=== PATIENT | male | born 1975 | race Caucasian/White ===

== ENCOUNTER 2025-07-17 13:02 | Inpatient (IN) | payer SELFPAY ==
[2025-07-17] VITALS (9 sets, daily range): BP systolic 95–129; BP diastolic 68–81; PULSE 78–88; RESP 18–28; TEMP 36.3–37; O2SAT 87–100; BMI 21.5; BMI 21.7
--- NOTE | 2025-07-17 13:07 | RAD_ITS ---
PROCEDURE: CHEST PA AND LATERAL 07/17/2025 REASON FOR EXAM: COUGHING UP SPUTUM TECHNIQUE: Procedure Code: RADCXR Modality: DX Procedure: CHEST PA AND LATERAL COMPARISON: None. FINDINGS: LUNGS AND PLEURA: Consolidation occupying the right middle lobe and to a lesser degree inferior right lower lobe. No pleural effusion or pneumothorax. HEART AND MEDIASTINUM: The heart size and mediastinal contours are normal. BONES: No acute osseous abnormality. RAD/Chest PA and Lateral IMPRESSION: Right lung consolidations, consistent with pneumonia. Posttreatment follow-up imaging is recommended until resolved. Reading Location: [id number]
[2025-07-17 13:31] LABS: Hematocrit 42.3 % (40-54); Hemoglobin 14.4 g/dL (13.0-16.5); Immature Granulocytes Count 0.350 X10^3/uL (0.0-0.0); Mean Corp Hgb Conc 34.0 g/dL (32-36); Mean Corpuscular Volume 82.5 fL (80-94); Mean Platelet Vol. 9.0 fl (6.2-12.0); NRBC Flagged by Analyzer 0 % (0-5); POSITIVE DIFFERENTIAL YES; POSITIVE MORPHOLOGY YES; Platelet Count 417 K/mm3 (150-450); RBC Distribution Width CV 12.1 % (11.6-14.6); RBC Distribution Width SD 36.6 fl (35.1-43.9); Red Blood Count 5.13 M/mm3 (4.6-6.2); White Blood Count 21.9 K/mm3 (4.4-11.0)
[2025-07-17 13:41] LABS: Differential Indicated SCAN CRITERIA MET
[2025-07-17 14:21] LABS: Anion Gap 12 (5-15); BUN 32 mg/dL (4-19); BUN/Creat Ratio 34.4 RATIO (10-20); Calcium,Total 9.9 mg/dL (7.6-11.0); Carbon Dioxide 28.1 mmol/L (21.0-32.0); Chloride 83 mmol/L (98-108); Estimated Creatinine Clearance 85.70 ml/min (50-250); Glucose 743 mg/dL (70-99); Potassium 5.7 mmol/L (3.3-5.1)
--- NOTE | 2025-07-17 14:23 | EKG12_ITS ---
Test Reason : Blood Pressure : */* mmHG Vent. Rate : 77 BPM Atrial Rate : 77 BPM P-R Int : 134 ms QRS Dur : 104 ms QT Int : 386 ms P-R-T Axes : 51 31 59 degrees QTcB Int : 436 ms Normal sinus rhythm Normal ECG Confirmed by Bautista Lake ([id number]), script editor TAYLOR ANDERSON ([id number]) on 07/18/2025 10:36:01 AM Referred By: Confirmed By: Bautista Lake
--- NOTE | 2025-07-17 14:42 | ED.VIS.DYS ---
HPI History of Present Illness Chief Complaint: Cold Sx Narrative Narrative: Chief complaint and HPI: 49-year-old male with no significant past medical history other than intermittent heroin abuse (does not inject) presents for evaluation of right sided chest pain, cough, headache for the past 3 days. Patient denies any fever, chills, shortness of breath, abdominal pain, nausea, vomiting, diarrhea, constipation, dysuria. Denies any sick contacts. Patient describes his pain as sharp. Worse when he takes a deep breath then. Review of systems: See HPI Medications: As listed on the chart Allergies: As listed on the chart PFSH: Per chart Vital signs: As listed on the chart. Reviewed. Physical exam: Gen: A&O x3, NAD Head: Normocephalic, atraumatic Eyes: No sclera icterus, conjunctiva clear, PERRL, EOMI ENT: TMs clear BL, dry mucous membranes, posterior oropharynx unremarkable, uvula midline, tonsils not enlarged Neck: Trachea midline, Full ROM, No meningismus CV: RRR, no murmurs, +1 bilateral peripheral edema Resp: Lungs CTA BL, no w/r/c GI: Cachectic, abd soft, non-distended, non-tender, no r/r/g Musc: Full ROM, no deformity Skin: Warm, dry, no rash Psych: Cooperative, appropriate mood and affect [facility] Medical History Encounter for examination required by Department of Transportation (DOT) Home Medications ?Medication ?Instructions ?Recorded ?Last Taken ?Type NK 05/23/23 Unknown History Allergy/AdvReac Type Severity Reaction Status Date / Time No Known Allergies Allergy Verified 07/17/25 13:06 Social History (Updated 05/23/23 @ 13:20 by Magalis Aguilar) Smoking Status: Current every day smoker tobacco type: cigarettes EXAM Physical Exam Const Vital Signs: 07/17/25 13:04 07/17/25 13:39 07/17/25 13:39 Temperature 97.3 F L Temperature Source Temporal Pulse Rate 80 Respiratory Rate 18 20 H Respiratory Effort Respiratory Pattern Blood Pressure 129/81 H Blood Pressure Mean 97 Pulse Ox 95 100 Oxygen Delivery Method Room Air Room Air Room Air 07/17/25 13:39 07/17/25 15:04 Temperature Temperature Source Pulse Rate 84 Respiratory Rate 19 H Respiratory Effort Short of Breath Respiratory Pattern Tachypnea Blood Pressure 105/78 Blood Pressure Mean 87 Pulse Ox 93 Oxygen Delivery Method Room Air MDM MDM MDM Narrative Medical decision making narrative: 49-year-old male with no significant past medical history other than intermittent heroin abuse (does not inject) presents for evaluation of right sided chest pain, cough, headache for the past 3 days. Patient describes his pain as sharp. Worse when he takes a deep breath. Differential diagnosis includes but is not limited to influenza, viral illness, pneumonia, pleurisy, PE, electrolyte abnormality, dehydration. Laboratory workup ordered including chest x-ray. NS bolus, morphine, Zofran ordered. CBC with leukocytosis of 21.9. No anemia. BMP shows dehydration with a sodium of 123, potassium of 5.7. BUN of 32. No DOTTIE. Patient is hyperglycemic at 743. Patient has no history of diabetes. Concern is for possible new onset diabetes/DKA. DKA workup ordered. Patient receiving fluids. IV insulin ordered. VBG without acidosis. UA negative for UTI but positive for glucose. Negative for ketones. COVID, flu, RSV negative. D-dimer elevated at 1.47. Cannot rule out PE. CTA chest ordered. Hemoglobin A1c is 14.9. Patient is a diabetic but not in DKA.. Hepatic panel relatively unremarkable. BNP unremarkable. Beta hydroxy butyrate elevated at 0.7. Urine drug screen positive for fentanyl. Repeat blood sugar in the 500s. 5 units IV insulin ordered and NS bolus. Troponin unremarkable. Chest x-ray was personally viewed interpreted by [place], ED physician. Patient has right-sided pneumonia. Radiology in agreement. Rocephin and azithromycin ordered. CTA chest negative for PE. Patient has extensive airspace disease in the right middle greater than lower lobes including lobar consolidation. Findings suggest relatively large volume aspiration and associated pneumonia/pneumonitis. Note tiny foci of aeration in the consolidated right middle lobe, may reflect necrotizing component/early pulmonary abscess formation. Recommend follow-up CT in 2 to 3 months. Mediastinal lymphadenopathy. Patient will warrant admission. Patient was updated on his results of the plan. He confirmed understanding. Patient was discussed with the hospitalist service who accepted admission. EKG: Interpreted by me/EM physician: EKG shows normal sinus rhythm without any acute ischemic changes. Heart rate 77. Impression: 1. Right-sided pneumonia 2. Hyperglycemia with new diagnosis of diabetes 3. Hyponatremia 4. Hyperkalemia 5. Dehydration Lab Data Labs: Laboratory Results - last 24 hr 07/17/25 07/17/25 07/17/25 13:22 14:45 14:56 WBC 21.9 H RBC 5.13 Hgb 14.4 Hct 42.3 MCV 82.5 MCH 28.1 MCHC 34.0 RDW Std Deviation 36.6 RDW Coeff of Shailesh 12.1 Plt Count 417 MPV 9.0 Immature Gran % (Auto) 1.600 H Neut % (Auto) 77.9 H Lymph % (Auto) 6.7 L [place] % (Auto) 13.7 H Eos % (Auto) 0.1 Baso % (Auto) 0.0 Absolute Neuts (auto) 17.0 H Absolute Lymphs (auto) 1.46 Nucleated RBC % 0 Differential Comment COMMENT D-Dimer Quant (PE/DVT) 1.47 H* Sodium 123 L Potassium 5.7 H Chloride 83 L Carbon Dioxide 28.1 Anion Gap 12 BUN 32 H Creatinine 0.94 Estim Creat Clear Calc 85.70 Est GFR (MDRD) Non-Af 100 BUN/Creatinine Ratio 34.4 H Glucose 743 H* Hemoglobin A1c 14.9 H Lactic Acid 2.1 H* Calcium 9.9 Total Bilirubin 0.67 Direct Bilirubin 0.46 H AST 28 ALT 26 Alkaline Phosphatase 198 H Troponin T High Sens < 6 NT pro BNP II 148 Total Protein 7.3 Albumin 3.0 L Globulin 4.3 H b-Hydroxybutyric mmol/L 0.7 H Urine Color Straw Urine Clarity Clear Urine pH 6.0 Ur Specific [place] 1.010 Urine Protein Negative Urine Glucose (UA) 1000 H Urine Ketones 5 H Urine Occult Blood Negative Urine Nitrite Negative Urine Bilirubin Negative Urine Urobilinogen Normal Ur Leukocyte Esterase Negative Urine RBC 0 SEEN Urine WBC 0 SEEN Ur Squamous Epith Cells 0-5 SEEN Urine Bacteria 0 SEEN Urine Mucus 0 SEEN Urine Opiates Screen NEGATIVE U Buprenorphine Qual NEGATIVE Ur Oxycodone Screen NEGATIVE Urine Methadone Screen NEGATIVE Urine Fentanyl Screen PRESUMPTIVE POSITIVE Ur Barbiturates Screen NEGATIVE Ur Phencyclidine Scrn NEGATIVE Ur Amphetamines Screen NEGATIVE U Benzodiazepines Scrn NEGATIVE Urine Cocaine Screen NEGATIVE U Cannabinoids Screen NEGATIVE POC Glucose > 500 H* 07/17/25 15:57 WBC RBC Hgb Hct MCV MCH MCHC RDW Std Deviation RDW Coeff of Shailesh Plt Count MPV Immature Gran % (Auto) Neut % (Auto) Lymph % (Auto) [place] % (Auto) Eos % (Auto) Baso % (Auto) Absolute Neuts (auto) Absolute Lymphs (auto) Nucleated RBC % Differential Comment D-Dimer Quant (PE/DVT) Sodium Potassium Chloride Carbon Dioxide Anion Gap BUN Creatinine Estim Creat Clear Calc Est GFR (MDRD) Non-Af BUN/Creatinine Ratio Glucose Hemoglobin A1c Lactic Acid Calcium Total Bilirubin Direct Bilirubin AST ALT Alkaline Phosphatase Troponin T High Sens NT pro BNP II Total Protein Albumin Globulin b-Hydroxybutyric mmol/L Urine Color Urine Clarity Urine pH Ur Specific [place] Urine Protein Urine Glucose (UA) Urine Ketones Urine Occult Blood Urine Nitrite Urine Bilirubin Urine Urobilinogen Ur Leukocyte Esterase Urine RBC Urine WBC Ur Squamous Epith Cells Urine Bacteria Urine Mucus Urine Opiates Screen U Buprenorphine Qual Ur Oxycodone Screen Urine Methadone Screen Urine Fentanyl Screen Ur Barbiturates Screen Ur Phencyclidine Scrn Ur Amphetamines Screen U Benzodiazepines Scrn Urine Cocaine Screen U Cannabinoids Screen POC Glucose > 500 H* ABG Data ABG results: ABG 07/17/25 15:11 Specimen Type KAREL Sample Site Not entered VBG pH 7.44 H VBG pO2 34 VBG HCO3 27 H VBG Total CO2 28 VBG O2 Sat (Calc) 68 VBG Base Excess 3 POC Mix VBG pCO2 Pt Tmp 39.4 L O2 Delivery Device Not entered Radiography Diagnostic Testing: Clinical Impression(s) from Imaging Studies Chest X-Ray 07/17/25 13:07 IMPRESSION: Right lung consolidations, consistent with pneumonia. Posttreatment follow-up imaging is recommended until resolved. Reading Location: [facility] Chest CTA 07/17/25 15:24 IMPRESSION: 1. No pulmonary embolism identified. 2. Extensive airspace disease in the RIGHT middle greater than lower lobes including lobar consolidation/collapse of the RIGHT middle lobe, associated with complete opacification of the associated bronchial tree with debris. Findings suggest relatively large volume aspiration and associated pneumonia/pneumonitis. Note tiny foci of aeration in the consolidated RIGHT middle lobe may reflect necrotizing component/early pulmonary abscess formation. Recommend follow-up CT chest with IV contrast in 2-3 months to document resolution and no underlying central obstructing mass as an alternative etiology for these findings. 3. Mediastinal lymphadenopathy, nonspecific and potentially reactive to the above in the absence of known malignancy. Correlate with medical history and recommend attention on above follow-up. 4. Additional description as above. Reading Location: [id number] Discharge Plan Triage Chief Complaint: Cold Sx ED Provider: Rob Laura Dx/Rx/DC Orders Prescriptions: No Action NK Primary Care Provider: Care Physician,No Primary Referrals: Care Physician,No Primary [Primary Care Provider, Medical] Print Language: Bahamian
[2025-07-17] MEDS: 0.9% Normal Saline (1000mL) 1,000 ML 1000 ML IV ×2 (14:43→16:50)
[2025-07-17] MEDS: Insulin Lispro 10 UNIT in Syringe 0 ML 6 UNIT IV (14:56)
[2025-07-17 15:03] LABS: Color, Urine Straw (Yellow); Glucose, Dipstick 1000 mg/dl (Normal); Ketone-Dipstick 5 mg/dl (Negative); Leukocyte Esterase-Dipstick Negative /ul (Negative); Mucous, Urine 0 SEEN /hpf (<or=2+); Nitrite-Dipstick Negative (Negative); Occult Blood-Urine Negative /ul (Negative); Protein-Dipstick Negative (Negative); Red Blood Cells-Urine 0 SEEN /hpf (0-5); Specific Gravity, Urine 1.010 (1.002-1.030); Urine Bilirubin Dipstick Negative (Negative)
[2025-07-17 15:15] LABS: D-Dimer Quantitative (DVT/PE) 1.47 FEU/ug/m (0.27-0.49)
[2025-07-17 15:15] LABS: SITE Not entered; VBG BASE EXCESS 3 mmol/L (-1.0-3.5); VBG PO2 34 mmHg (25-40); VBG SO2 68 % (50-70); VBG TCO2 28 mmol/L (23-33)
[2025-07-17 15:18] LABS: Squamous Epithelial Cells - UA 0-5 SEEN /hpf (0-5)
--- NOTE | 2025-07-17 15:24 | CT_ITS ---
PROCEDURE: CTA CHEST W/WO CONTRAST 07/17/2025 REASON FOR EXAM: PE TECHNIQUE: Procedure Code: [id number] Modality: CT Procedure: CTA CHEST W/WO CONTRAST CTA chest was performed with IV contrast. Multiplanar reformats and MIP reconstructions were generated. CONTRAST: Isovue 370 VOLUME: 100 mL One or more dose reduction techniques were used (e.g., Automated exposure control, adjustment of the mA and/or kV according to patient size, use of iterative reconstruction technique). RADIATION DOSE SUMMARY: CTDlvol: 5.99+ 4.20 mGy DLP: 150.78 mGycm COMPARISON: None. FINDINGS: Heart/pericardium: Unremarkable. Aorta: Unremarkable. Pulmonary arteries: Normal in caliber. No pulmonary embolism is identified. Lymph nodes: Ill-defined subcarinal node, 14 mm short axis. Suspected precarinal node, is partially obscured by streak artifact, 12 mm short axis. Additional more cranial paratracheal node roughly 17 mm short axis also partially obscured by artifact. Considerable perihilar airspace disease in the RIGHT, unable to exclude hilar lymphadenopathy although none is definitely measurable. Lungs/pleura: Considerable multifocal airspace disease on the RIGHT including lobar consolidation/collapse of the RIGHT middle lobe allowing for a few tiny foci of aeration versus cavitation.. Fairly extensive airspace disease in the RIGHT lower lobe is vaguely nodular with trace surrounding ground-glass. These findings are associated with airway related findings as below. Trace RIGHT pleural effusion. Airways: Virtually complete opacification of the bronchus intermedius, RIGHT middle lobe bronchus, and RIGHT lower lobe bronchus, as well as peripheral branches with fluid/debris.. Chest wall: Unremarkable. Upper abdomen: Small LEFT renal cyst. Musculoskeletal: Minimal degenerative findings.. CT/CTA Chest W/WO Contrast IMPRESSION: 1. No pulmonary embolism identified. 2. Extensive airspace disease in the RIGHT middle greater than lower lobes incl uding lobar consolidation/collapse of the RIGHT middle lobe, associated with complete opacification of the associated bronchial tree with debris. Findings suggest relatively large volume aspiration and associated pneumonia/pneumonitis. Note tiny foci o f aeration in the consolidated RIGHT middle lobe may reflect necrotizing component/early pulmonary abscess formation. Recommend follow-up CT chest with IV contrast in 2-3 months to document resolution and no underlying central obstructing mass as an alterna tive etiology for these findings. 3. Mediastinal lymphadenopathy, nonspecific and potentially reactive to the abo ve in the absence of known malignancy. Correlate with medical history and recommend attention on above follow-up. 4. Additional description as above. Reading Location: [id number]
[2025-07-17 15:39] LABS: AST(SGOT) 28 U/L (<=37); Alanine Aminotransfer ALT/SGPT 26 U/L (<=46); Albumin, Serum 3.0 g/dL (3.5-5.0); Alkaline Phosphatase 198 U/L (40-129); BETA-HYDROXYBUTYRATE 0.7 mmol/L (0.0-0.3); Bilirubin, Direct 0.46 mg/dL (0.00-0.30); Globulin 4.3 g/dL (2.2-4.2); Pro- Brain NATRIURETIC PEPTIDE 148 pg/mL (<=450)
[2025-07-17 15:40] LABS: Barbiturate Urine NEGATIVE (< 200 ng/mL); Benzodiazepine Urine NEGATIVE (< 200 ng/mL); PCP Urine NEGATIVE (< 25 ng/mL); THC Urine NEGATIVE (< 50 ng/mL)
[2025-07-17 16:03] LABS: Troponin T High Sensitivity < 6 ng/L (<=22)
[2025-07-17] MEDS: Insulin Lispro 5 UNIT in Syringe 0 ML 3 UNIT IV (17:05)
[2025-07-17] MEDS: Ceftriaxone 2 GM in 0.9% Normal Saline (50mL MB+) 50 ML IV (17:07)
[2025-07-17] MEDS: Ketorolac 30 MG/ML Syringe IV (17:20)
--- NOTE | 2025-07-17 17:28 | HP.PCM.HOS_ITS ---
HPI - General General Date of Admission: 07/17/25 Date of Service: 07/17/25 Chief Complaint: Right sided chest pain HPI Narrative JAMIE VILLANUEVA, is a 49-year-old male history of daily heroin use presented [facility] ED 07/17/2025 with several days of right-sided chest pain and cough for the past 3 days. In the ED temp 97.3, heart rate of 80, respiratory rate 18, blood pressure 129/81, pulse ox 95% on room air. White count was found to be 21.9, hemoglobin 14.4, sodium 123 and potassium 5.7 however glucose noted to be 743, BUN 32 and creatinine 0.94. D-dimer 1.47 and lactic acid 2.1, hemoglobin A1c obtained was 14.9. Beta hydroxybutyrate 0.7 and UA with only 5 ketones, no evidence of infection. Fentanyl positive and UDS. VBG with pH of 7.44, bicarb 27, pCO2 39.4. Chest x-ray with right lung consolidation consistent with pneumonia and given D-dimer chest CTA obtained which showed extensive airspace disease in right middle greater than lower lobe including lobar consolidation/collapse of right middle lobe with complete opacification of associated bronchial tree with debris concerning for aspiration and associated pneumonia/pneumonitis. Tiny foci of aeration in the consolidated right middle lobe which could show early pulmonary abscess formation but is recommended follow-up CT of the chest with contrast in 2 to 3 months to document resolution. Mediastinal lymphadenopathy appreciated. Patient given antibiotics and IV fluids as well as insulin hospitalist contacted for admission. Patient evaluated bedside and reported history as above with 3 to 4 days of right sided chest pain worse with inspiration and cough, did not note shortness of breath particularly as he mostly was concerned about the pain. Denies any fevers at home. Denies any events where he passed out and may have aspirated or was sleeping so deeply he would not have noticed an aspiration event. Does note heroin and denies IV use, uses every day but reports he uses about half a gram, is not interested in any kind of Subutex treatment. [facility] Medical History (Updated 07/17/25 @ 17:[address] Jana Randle MD) Encounter for examination required by Department of Transportation (DOT) Home Medications ?Medication ?Instructions ?Recorded ?Last Taken ?Type NK 05/23/23 Unknown History Allergy/AdvReac Type Severity Reaction Status Date / Time No Known Allergies Allergy Verified 07/17/25 13:06 Social History (Updated 05/23/23 @ 13:20 by Magalis Aguilar) Smoking Status: Current every day smoker tobacco type: cigarettes ROS ROS Narrative General: Denies fever/chills HENT: Denies headache, denies stuffy nose, denies sore throat EYES: Denies changes in vision Resp: Specifically reports cough, maybe some shortness of breath Cardiac: Pleuritic right-sided chest pain GI: Denies abdominal pain, denies changes in bowel, denies nausea/vomiting : Denies changes in urination Extremity: Some swelling intermittently in legs which is not new, usually left greater than right MSK: Denies weakness Neuro: Denies any numbness/tingling Heme: Denies any bleeding or bruising Skin: some redness on nose Psychiatric: No complaints voiced Patient's Goals Of Care . What would you like to achieve or improve as a result of your hospital stay?: To improve right sided chest pain Vital Signs Vital Signs Vital Signs: 07/17/25 13:04 07/17/25 13:39 07/17/25 13:39 Temperature 97.3 F L Temperature Source Temporal Pulse Rate 80 Respiratory Rate 18 20 H Respiratory Effort Respiratory Pattern Blood Pressure 129/81 H Blood Pressure Mean 97 Pulse Ox 95 100 Oxygen Delivery Method Room Air Room Air Room Air 07/17/25 13:39 07/17/25 15:04 07/17/25 17:26 Temperature 97.9 F Temperature Source Pulse Rate 84 83 Respiratory Rate 19 H 19 H Respiratory Effort Short of Breath Respiratory Pattern Tachypnea Blood Pressure 105/78 113/76 Blood Pressure Mean 87 88 Pulse Ox 93 94 Oxygen Delivery Method Room Air Weight Weight: 62.369 kg Body Mass Index (BMI) 21.5 Physical Exam Narrative General: Alert, oriented, no apparent distress HEENT: Atraumatic, normocephalic Eyes: Anicteric, normal conjunctiva, extraocular movements grossly intact Neck: Supple Respiratory: Clear to auscultation bilaterally, normal respiratory effort Cardiovascular: Regular rate and rhythm GI: Soft, nontender, nondistended Extremities: No edema Musculoskeletal: Moving all extremities Neuro: No overt focal neurological deficits Skin: No rashes appreciated Psych: Cooperative Results Lab / Micro Data 07/17/25 13:22 07/17/25 13:22 Labs: Laboratory Results - last 24 hr 07/17/25 13:22: WBC 21.9 H, RBC 5.13, Hgb 14.4, Hct 42.3, MCV 82.5, MCH 28.1, MCHC 34.0, RDW Std Deviation 36.6, RDW Coeff of Shailesh 12.1, Plt Count 417, MPV 9.0, Immature Gran % (Auto) 1.600 H, Neut % (Auto) 77.9 H, Lymph % (Auto) 6.7 L, [place] % (Auto) 13.7 H, Eos % (Auto) 0.1, Baso % (Auto) 0.0, Absolute Neuts (auto) 17.0 H, Absolute Lymphs (auto) 1.46, Nucleated RBC % 0, Differential Comment COMMENT, Sodium 123 L, Potassium 5.7 H, Chloride 83 L, Carbon Dioxide 28.1, Anion Gap 12, BUN 32 H, Creatinine 0.94, Estim Creat Clear Calc 85.70, Est GFR (MDRD) Non-Af 100, BUN/Creatinine Ratio 34.4 H, Glucose 743 H*, Calcium 9.9 07/17/25 14:45: D-Dimer Quant (PE/DVT) 1.47 H*, Hemoglobin A1c 14.9 H, Lactic Acid 2.1 H*, Total Bilirubin 0.67, Direct Bilirubin 0.46 H, AST 28, ALT 26, A lkaline Phosphatase 198 H, Troponin T High Sens < 6, NT pro BNP II 148, Total Protein 7.3, Albumin 3.0 L, Globulin 4.3 H, b-Hydroxybutyric mmol/L 0.7 H, Urine Color Straw, Urine Clarity Clear, Urine pH 6.0, Ur Specific [place] 1.010, Urine Protein Negative, Urine Glucose (UA) 1000 H, Urine Ketones 5 H, Urine Occult Blood Negative, Urine Nitrite Negative, Urine Bilirubin Negative, Urine Urobilinogen Normal, Ur Leukocyte Esterase Negative, Urine RBC 0 SEEN, Urine WBC 0 SEEN, Ur Squamous Epith Cells 0-5 SEEN, Urine Bacteria 0 SEEN, Urine Mucus 0 SEEN, Urine Opiates Screen NEGATIVE, U Buprenorphine Qual NEGATIVE, Ur Oxycodone Screen NEGATIVE, Urine Methadone Screen NEGATIVE, Urine Fentanyl Screen PRESUMPTIVE POSITIVE, Ur Barbiturates Screen NEGATIVE, Ur Phencyclidine Scrn NEGATIVE, Ur Amphetamines Screen NEGATIVE, U Benzodiazepines Scrn NEGATIVE, Urine Cocaine Screen NEGATIVE, U Cannabinoids Screen NEGATIVE 07/17/25 14:56: POC Glucose > 500 H* 07/17/25 15:57: POC Glucose > 500 H* Micro: Microbiology 07/17/25 13:10 Mucosa - Nose SARS-CoV-2, Influenza & RSV (PCR) - Final ABG Data ABG results: ABG 07/17/25 15:11 Specimen Type KAREL Sample Site Not entered VBG pH 7.44 H VBG pO2 34 VBG HCO3 27 H VBG Total CO2 28 VBG O2 Sat (Calc) 68 VBG Base Excess 3 POC Mix VBG pCO2 Pt Tmp 39.4 L O2 Delivery Device Not entered Imaging Radiology Impression Chest X-Ray 07/17/25 13:07 IMPRESSION: Right lung consolidations, consistent with pneumonia. Posttreatment follow-up imaging is recommended until resolved. Reading Location: [id number] Chest CTA 07/17/25 15:24 IMPRESSION: 1. No pulmonary embolism identified. 2. Extensive airspace disease in the RIGHT middle greater than lower lobes including lobar consolidation/collapse of the RIGHT middle lobe, associated with complete opacification of the associated bronchial tree with debris. Findings suggest relatively large volume aspiration and associated pneumonia/pneumonitis. Note tiny foci of aeration in the consolidated RIGHT middle lobe may reflect necrotizing component/early pulmonary abscess formation. Recommend follow-up CT chest with IV contrast in 2-3 months to document resolution and no underlying central obstructing mass as an alternative etiology for these findings. 3. Mediastinal lymphadenopathy, nonspecific and potentially reactive to the above in the absence of known malignancy. Correlate with medical history and recommend attention on above follow-up. 4. Additional description as above. Reading Location: [id number] Assessment & Plan Assessment/Plan (1) Pneumonia: (2) Opioid use disorder: (3) Diabetes mellitus: PLAN: Plan # Right-sided pneumonia -Imaging: chest CTA obtained which showed extensive airspace disease in right middle greater than lower lobe including lobar consolidation/collapse of right middle lobe with complete opacification of associated bronchial tree with debris concerning for aspiration and associated pneumonia/pneumonitis. Tiny foci of aeration in the consolidated right middle lobe which could show early pulmonary abscess formation but is recommended follow-up CT of the chest with contrast in 2 to 3 months to document resolution. Mediastinal lymphadenopathy appreciated -Unclear if patient may have had an episode where he passed out from drug use and aspirated, patient not very forthcoming -DuoNebs and as needed albuterol -Sputum culture, COVID ordered, respiratory panel ordered -Urine antigens -Mucinex, I/S -Given concern for aspiration will start Zosyn and given this is technically community-acquired we will also treat with azithromycin -Feel is reasonable to consult infectious disease -Presently saturating well on room air, may ultimately consider pulm involvement as well -Will check HIV # New onset diabetes -A1c 14.9 -Not presently in DKA, suspect that this is probably been going on longer than patient realizes, reports he has not been to a doctor in a long time -Every 4 hour glucose checks and sliding scale insulin -Will start glargine twice daily and uptitrate -Every 4h BMPs for now to monitor electrolytes # Heroin use -Patient not interested in any kind of Subutex or detox, discussed his use with him, advised if he changes his mind to let us know #Hyperkalemia - Likely due to significant shifts due to hyperglycemia, IV fluids and trend BMP #DVT ppx: Lovenox subcu Jana Randle MD Time spent in the patient's overall evaluation, decision-making process, review of diagnostic data, adjustment of management, discussion with other providers, nursing and ancillary staff involved in patient's care documentation, 76 Minutes Charges/Coding Visit Charges Inpatient E&M: 80925 Init Hosp L3
[2025-07-17] MEDS: Azithromycin 500 MG in 0.9% Normal Saline (250mL Bag) 250 ML 255 MG IV (17:53)
[2025-07-17 18:53] LABS: Reflex Lactate? Y
[2025-07-17 19:46] LABS: HIV Nonreactive (Nonreactive)
--- NOTE | 2025-07-17 19:48 | CM.ED ---
Social Work Reason for visit: No PCP Patient confirmed that he does not have a PCP. [facility] provider list given to patient. CURRY Torres, FOOD PRODUCT INSPECTOR
[2025-07-17 19:51] LABS: Anion Gap 14 (5-15); BUN 27 mg/dL (4-19); BUN/Creat Ratio 39.6 RATIO (10-20); Calcium,Total 9.0 mg/dL (7.6-11.0); Carbon Dioxide 24.7 mmol/L (21.0-32.0); Chloride 90 mmol/L (98-108); Estimated Creatinine Clearance 117.93 ml/min (50-250); Glucose 382 mg/dL (70-99); Potassium 4.2 mmol/L (3.3-5.1)
--- OUTSIDE RECORDS SUMMARY | 2025-07-17 19:53 | XMS RPT_ITS | CCD ---
Author Organization [facility] CliniSyvt Care Team Providers Care Awning Hanger Supervisor Name Role Phone Qasim Rashid Attending Unavailable Qasim Rashid Attending Unavailable Problems Problem Classification Problem Date Documented Date Episodic/Chronic Administrative/social admission (1 source) Encounter for other administrative examinations; Translations: [Encounter for other administrative examinations] Onset: 05-23-2023 Episodic Results Test Name Value Interpretation Reference Range Facil ity Office Visit Reporton 2022 Office Visit Report [facility] [address] [place] [address] OFFICE VISIT Date of Service: 05/23/23 MR#: [id number] Acct: [id number] Patient: JAMIE VILLANUEVA Rep #: [id number] : 1975 Provider: LAKESHA Pham Age/Sex: 47/M Location: [facility] Status: Signed Intake Intake Visit Reasons: 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 [address] , [address] [place] [address] [phone] OFFICE VISIT Date of Service: 05/23/23 MR#: [id number] Acct: [id number] Name: JAMIE VILLANUEVA Rep #: [id number] : 1975 Provider: LAKESHA Pham Age/Sex: 47/M Location: [facility] Status: Signed Intake Vital Signs 05/23/23 13:18 Height 5 ft 7 in Weight: 166 lb BMI 25.9 BP 115/75 Blood Pressure Location Lt brachial Position Sitting Pulse 100 Pulse Source Monitor Temp 98.6 F Temp Source Temporal Pulse Oximetry (%) 93 Oxygen Delivery Method room air Intake Visit Reasons: DOT PHYSICAL/PALLOTTA CORLEY [employer] Metall[employer]ist Required: No Accompanied by: Self Is patient in pain?: No Allergies No Known Allergies Allergy (Unverified 05/23/23 13:19) Medications NK 05/23/23 [History Confirmed 05/23/23] PFSH Medical History (Updated 05/23/23 @ 13:43 by LAKESHA Salazar) Encounter for examination required by Department of Transportation (DOT) Social History (Updated 05/23/23 @ 13:20 by Magalis Aguilar) Smoking Status: Current every day smoker tobacco type: cigarettes Years smoked: 26 HPI HPI Details: JAMIE VILLANUEVA, is a 47 M who presents to the office today for Office Procedures Physical Exam Coding PE Coding DOT PE: Yes Coding Level of Care Code No Charge Diagnoses Encounter for examination required by Department of Transportation (DOT) Z02.89 Assessment and Plan Assessment and Plan (1) Encounter for examination required by Department of Transportation (DOT): Status: Acute 05/23/23 1343 Date Qasim CROWDER Cosigner Signature: Date (if applicable) CC: Normal [facility] Encounters Encounter Date Encounter Type Care Provider Facility Start: 05-23-2023 End: 05-23-2023 ambulatory Qasim CROWDER Facility:[facility] Payers Date Payer Category Payer Self-pay Unknown [id number] Unknown [id number] Summary Purpose Family History No Family History Records Found Advance Directives No Advanced Directives Records Found Additional Source Comments (unrecognized sect ion and content) No Status Records Found INFORMATION SOURCE (unrecogn ized section and content) DATE CREATED AUTHOR 05/30/2023 [facility] FOR RECORDS PERTAINING TO PATIENTS WHO ARE OR HAVE BEEN ENROLLED IN A CHEMICAL DEPENDENCY/SUBSTANCEABUSE PROGRAM, SOME INFORMATION MAY BE OMITTED. This clinical summary was aggregated from multiple sources. Caution should be exercised in using it in the provision of clinical care. This summary normalizes information from multiple sources, and as a consequence, information in this document may materially change the coding, format and clinical context of patient data. In addition, data may be omitted in some cases. CLINICAL DECISIONS SHOULD BE BASED ON THE PRIMARY CLINICAL RECORDS. [facility] [employer] provides no warranty or guarantee of the accuracy or completeness of information in this document.
[2025-07-17] MEDS: Insulin Glargine-YFGN 100 UNIT/ML Pen SC (20:56)
--- NOTE | 2025-07-17 21:12 | SEPSISATNOTE ---
Sepsis Attestation Sepsis Alert: Yes Sepsis Attestation: Agree w/Sepsis Date exam was performed: 07/17/25 Time exam was performed: 21:13 Possible Source of Sepsis: Pulmonary Sepsis Organ Dysfunction Criteria Present: Lactic Acid > 2 mmol/L Fluid Resuscitation Fluid Resuscitation ordered: 30 ml/kg fluid bolus ordered Amount of fluid ordered: 1,000 Reason for lesser fluid bolus:: Other (Pt received 2L IVf bolus on admission with start of broad spectrum antimicrobial coverage at ID of PNA. Lactate increased, add'l 1L IVF ordered. ) Sepsis Note Date exam was performed: 07/18/25 Time exam was performed: 01:17 Sepsis Attestation: Sepsis re-evaluation was performed Response to fluids: Fluid responsive hypotension (no episodes of hypotension pre- or post- fluids.)
[2025-07-17] MEDS: Piperacil/Tazobactam 3.375 GM in 0.9% Normal Saline (50mL MB+) 50 ML IV (22:47)
[2025-07-17] MEDS: 0.9% Normal Saline (1000mL) 1,000 ML 999 ML IV (22:47)
[2025-07-17 22:52] LABS: Anion Gap 8 (5-15); BUN 26 mg/dL (4-19); BUN/Creat Ratio 39.7 RATIO (10-20); Calcium,Total 8.7 mg/dL (7.6-11.0); Carbon Dioxide 28.1 mmol/L (21.0-32.0); Chloride 92 mmol/L (98-108); Estimated Creatinine Clearance 123.30 ml/min (50-250); Glucose 370 mg/dL (70-99); Potassium 4.3 mmol/L (3.3-5.1)
[2025-07-18] VITALS (7 sets, daily range): BP systolic 107–113; BP diastolic 66–75; PULSE 64–85; RESP 18–22; TEMP 36.3–36.9; O2SAT 91–94; BMI 22.7
--- NOTE | 2025-07-18 02:14 | NURSING ---
entered pt's room for bgt and found o2 off. pt's spo2 82%. 4L NC reapplied. spo2 now wnl. education provided.
[2025-07-18 02:27] LABS: Anion Gap 11 (5-15); BUN 23 mg/dL (4-19); BUN/Creat Ratio 35.4 RATIO (10-20); Calcium,Total 8.1 mg/dL (7.6-11.0); Carbon Dioxide 22.0 mmol/L (21.0-32.0); Chloride 96 mmol/L (98-108); Estimated Creatinine Clearance 123.30 ml/min (50-250); Glucose 273 mg/dL (70-99); Potassium 4.4 mmol/L (3.3-5.1)
[2025-07-18] MEDS: Piperacil/Tazobactam 3.375 GM in 0.9% Normal Saline (50mL MB+) 50 ML IV ×2 (05:16→14:32)
[2025-07-18 06:18] LABS: Hematocrit 38.3 % (40-54); Hemoglobin 13.0 g/dL (13.0-16.5); Immature Granulocytes Count 0.420 X10^3/uL (0.0-0.0); Mean Corp Hgb Conc 33.9 g/dL (32-36); Mean Corpuscular Volume 81.5 fL (80-94); Mean Platelet Vol. 9.1 fl (6.2-12.0); NRBC Flagged by Analyzer 0.1 % (0-5); POSITIVE DIFFERENTIAL YES; POSITIVE MORPHOLOGY YES; Platelet Count 403 K/mm3 (150-450); RBC Distribution Width CV 12.2 % (11.6-14.6); RBC Distribution Width SD 36.5 fl (35.1-43.9); Red Blood Count 4.70 M/mm3 (4.6-6.2); White Blood Count 22.0 K/mm3 (4.4-11.0)
[2025-07-18 06:46] LABS: Differential Indicated SCAN CRITERIA MET
[2025-07-18 07:08] LABS: Anion Gap 9 (5-15); BUN 21 mg/dL (4-19); BUN/Creat Ratio 39.0 RATIO (10-20); Calcium,Total 8.6 mg/dL (7.6-11.0); Carbon Dioxide 25.9 mmol/L (21.0-32.0); Chloride 95 mmol/L (98-108); Estimated Creatinine Clearance 154.53 ml/min (50-250); Glucose 236 mg/dL (70-99); Potassium 4.0 mmol/L (3.3-5.1)
[2025-07-18] MEDS: Insulin Glargine-YFGN 100 UNIT/ML Pen 10 UNIT SC (08:59)
--- NOTE | 2025-07-18 10:20 | CASEMGMT ---
Addendum entered by Joselyn Valerio 07/18/25 12:44: ALFREDO HERNANDEZ into pt room, pt state he does not have funds for his rx at [facility]. Requested SW provide resources. Completed Rx assist program and placed on dc readiness intervention for dc. Pt is agreeable to getting rx at [facility]. Original Note: ALFREDO HERNANDEZ Assessment: Face to Face with pt for initial transition planning/care coordination assessment. ALFREDO HERNANDEZ introduced self and role at [facility], pt voices understanding and consents to assessment. Pt is O x3, drowsy and kept eyes closed during assessment. Care providers, pharmacy, and demographics verified/updated. Strata:1 Admitting Dx:SUNSHINE and new onset DM PCP:None, provided pt with a local healthcare directory list. Pt states it doesn't matter. Discussed the importance of f/u with dx. Specialists:Denies Preferred Pharmacy:[facility] [place] Insurance:Self Pay Prescription Benefit: no LNOK:Alicia Ruvalcaba, mother; Katherin Braswell, sig other Living Arrangements/ADL/IADL: Pt lives with sig other in a single story home with a couple of steps to enter with a rail. Pt reports he is I in ADL/IADLs and denies concerns at home. Transportation: Pt drives self and denies concerns with transportation. DME:none HHC/SNF:Denies hx of Pt states no concerns with going home at time of dc. Pt is aware he will be provided a rx for BGM. Pt states he feels he can check his own blood sugars without difficulty and reports has done subcu injections prior. Pt denies any issues should he be dc'd on insulin. Pt is on RA now. Provided pt with a verbal local in network list of DME companies, should he need to be dc'd on oxygen, pt chose [employer]. Pt states he does heroin daily and smokes 1/2 ppd of cigarettes, denies any other drug use. Pt denies need for any cessation resources for this. Pt denies need for PCP to be set up for him and states he will do on his own. Pt states no further concerns/needs. CM to follow. Advised pt to ask CM if any further question/concerns/needs arise, voices understanding. Pt Goal:Home Plan:Home, provide BMG rx, follow for oxygen
[2025-07-18] MEDS: Vancomycin HCl 1,750 MG in 0.9% Normal Saline (500mL Bag) 500 ML 250 MG IV (10:46)
--- NOTE | 2025-07-18 10:59 | PCM.RX.CS ---
Consult Antibiotic Management Pharmacy has been consulted to manage selected antibiotic: Vancomycin Type of Intervention Type of Consult: New start Suspected Infection Suspected Infection: Pneumonia Labs Labs: Sodium 131 mmol/L (133-145) L 07/18/25 05:18 Potassium 4.0 mmol/L (3.3-5.1) 07/18/25 05:18 Chloride 95 mmol/L (98-108) L 07/18/25 05:18 Carbon Dioxide 25.9 mmol/L (21.0-32.0) 07/18/25 05:18 Anion Gap 9 (5-15) 07/18/25 05:18 BUN 21 mg/dL (4-19) H 07/18/25 05:18 Creatinine 0.55 mg/dL (0.70-1.20) L 07/18/25 05:18 Est GFR (MDRD) Non-Af 123 (>60) 07/18/25 05:18 BUN/Creatinine Ratio 39.0 RATIO (10-20) H 07/18/25 05:18 Glucose 236 mg/dL (70-99) H 07/18/25 05:18 Microbiology Microbiology: Microbiology 07/17/25 17:00 Blood Culture (Wb) - Anticubital Right Blood Culture - Preliminary 07/17/25 19:06 Mucosa - Nasopharyngeal Respiratory Panel (PCR) - Final 07/17/25 21:00 Nasal Secretion MRSA (PCR) - Final Meth. resistant Staph. aureus 07/17/25 19:06 Mucosa - Nose Coronavirus COVID-19 PCR - Final 07/17/25 14:45 Urine, Clean Catch Legionella Antigen - Final 07/17/25 14:45 Urine, Clean Catch Streptococcus pneumoniae Antigen (M - Final 07/17/25 13:10 Mucosa - Nose SARS-CoV-2, Influenza & RSV (PCR) - Final Estimated Creatinine Clearance Estimated Creatinine Clearance: > 120 Goal Trough Goal Trough: 15-20 mcg/mL Pharmacy Plan for Drug Dosing Pharmacy Plan for Drug Dosing: NEW START IV VANCOMYCIN Consulting Physician: Dr. Sheriff Indication: Pneumonia Goal Trough: 15-20 SrCr: 0.55 CrCl: > 120 ml/min Comments: Loading dose 1750mg x1 given @ 10:46 07/18/25 Vancomycin Dose: 750mg Q8H to start @ 19:00 07/18/25 Pending Level: 07/19/25 @ 10:30 Pharmacy Service will continue to monitor and adjust dosing as required. Follow-Up Labs Follow-Up Labs: Trough: Vancomycin (07/19/25 @ 10:30)
--- NOTE | 2025-07-18 11:05 | PCM.PN.HOSP ---
Reason for Visit Chief Complaint: Right sided chest pain Subjective Subjective Saw patient at bedside this morning. Patient was sitting back comfortably in bed, conversing normally, in no acute distress. He was breathing comfortably on room air at rest. Notes that he continues to feel fatigued but is normal this morning and has a diminished appetite. His right-sided chest pain does feel moderately improved compared to yesterday. He did not sleep very well last night and does feel somewhat anxious currently. He reiterated that he does not want to use Subutex for withdrawal but he would be willing to utilize other as needed medications for this. Denies any cough or sputum production. No other acute concerns this morning. Objective Data Objective Data Vital Signs: Vital Signs Temp Pulse Resp BP Pulse Ox O2 Del Method O2 Flow Rate 98.4 F 85 18 113/66 93 Nasal Cannula 4 07/18/25 08:54 07/18/25 10:39 07/18/25 10:39 07/18/25 08:54 07/18/25 08:54 07/18/25 09:51 07/18/25 09:51 Oxygen Flow Rate (L/min) 4 Oxygen Delivery Method Nasal Cannula Weight: 65.8 kg Body Mass Index (BMI) 22.7 Intake & Output: Intake and Output for Last 24 Hours 07/16/25 07/17/25 07/18/25 23:59 23:59 23:59 Intake Total 3305 / 3305 900 / 900 Balance 3305 / 3305 900 / 900 Lab / Micro Data 07/18/25 05:18 07/18/25 05:18 Labs: Laboratory Results - last 24 hr 07/17/25 13:22: WBC 21.9 H, RBC 5.13, Hgb 14.4, Hct 42.3, MCV 82.5, MCH 28.1, MCHC 34.0, RDW Std Deviation 36.6, RDW Coeff of Shailesh 12.1, Plt Count 417, MPV 9.0, Immature Gran % (Auto) 1.600 H, Neut % (Auto) 77.9 H, Lymph % (Auto) 6.7 L, [place] % (Auto) 13.7 H, Eos % (Auto) 0.1, Baso % (Auto) 0.0, Absolute Neuts (auto) 17.0 H, Absolute Lymphs (auto) 1.46, Nucleated RBC % 0, Differential Comment COMMENT, Sodium 123 L, Potassium 5.7 H, Chloride 83 L, Carbon Dioxide 28.1, Anion Gap 12, BUN 32 H, Creatinine 0.94, Estim Creat Clear Calc 85.70, Est GFR (MDRD) Non-Af 100, BUN/Creatinine Ratio 34.4 H, Glucose 743 H*, Calcium 9.9 07/17/25 14:45: D-Dimer Quant (PE/DVT) 1.47 H*, Hemoglobin A1c 14.9 H, Lactic Acid 2.1 H*, Total Bilirubin 0.67, Direct Bilirubin 0.46 H, AST 28, ALT 26, Alkaline Phosphatase 198 H, Troponin T High Sens < 6, NT pro BNP II 148, Total Protein 7.3, Albumin 3.0 L, Globulin 4.3 H, b-Hydroxybutyric mmol/L 0.7 H, Urine Color Straw, Urine Clarity Clear, Urine pH 6.0, Ur Specific [place] 1.010, Urine Protein Negative, Urine Glucose (UA) 1000 H, Urine Ketones 5 H, Urine Occult Blood Negative, Urine Nitrite Negative, Urine Bilirubin Negative, Urine Urobilinogen Normal, Ur Leukocyte Esterase Negative, Urine RBC 0 SEEN, Urine WBC 0 SEEN, Ur Squamous Epith Cells 0-5 SEEN, Urine Bacteria 0 SEEN, Urine Mucus 0 SEEN, Urine Opiates Screen NEGATIVE, U Buprenorphine Qual NEGATIVE, Ur Oxycodone Screen NEGATIVE, Urine Methadone Screen NEGATIVE, Urine Fentanyl Screen PRESUMPTIVE POSITIVE, Ur Barbiturates Screen NEGATIVE, Ur Phencyclidine Scrn NEGATIVE, Ur Amphetamines Screen NEGATIVE, U Benzodiazepines Scrn NEGATIVE, Urine Cocaine Screen NEGATIVE, U Cannabinoids Screen NEGATIVE 07/17/25 14:56: POC Glucose > 500 H* 07/17/25 15:57: POC Glucose > 500 H* 07/17/25 16:56: POC Glucose 450 H 07/17/25 17:47: POC Glucose 413 H 07/17/25 18:44: Sodium 128 L, Potassium 4.2, Chloride 90 L, Carbon Dioxide 24.7, Anion Gap 14, BUN 27 H, Creatinine 0.69 L, Estim Creat Clear Calc 117.93, Est GFR (MDRD) Non-Af 115, BUN/Creatinine Ratio 39.6 H, Glucose 382 H, Lactic Acid 2.5 H*, Calcium 9.0, HIV 1&2 Antibody Nonreactive 07/17/25 18:54: POC Glucose 386 H 07/17/25 22:00: Sodium 128 L, Potassium 4.3, Chloride 92 L, Carbon Dioxide 28.1, Anion Gap 8, BUN 26 H, Creatinine 0.66 L, Estim Creat Clear Calc 123.30, Est GFR (MDRD) Non-Af 117, BUN/Creatinine Ratio 39.7 H, Glucose 370 H, Calcium 8.7 07/17/25 22:50: POC Glucose 325 H 07/18/25 01:55: POC Glucose 254 H 07/18/25 01:59: Sodium 128 L, Potassium 4.4, Chloride 96 L, Carbon Dioxide 22.0, Anion Gap 11, BUN 23 H, Creatinine 0.66 L, Estim Creat Clear Calc 123.30, Est GFR (MDRD) Non-Af 117, BUN/Creatinine Ratio 35.4 H, Glucose 273 H, Calcium 8.1 07/18/25 05:15: POC Glucose 222 H 07/18/25 05:18: WBC 22.0 H, RBC 4.70, Hgb 13.0, Hct 38.3 L, MCV 81.5, MCH 27.7, MCHC 33.9, RDW Std Deviation 36.5, RDW Coeff of Shailesh 12.2, Plt Count 403, MPV 9.1, Immature Gran % (Auto) 1.900 H, Neut % (Auto) 73.8 H, Lymph % (Auto) 10.6 L, [place] % (Auto) 13.3 H, Eos % (Auto) 0.3, Baso % (Auto) 0.1, Absolute Neuts (auto) 16.2 H, Absolute Lymphs (auto) 2.32, Nucleated RBC % 0.1, Sodium 131 L, Potassium 4.0, Chloride 95 L, Carbon Dioxide 25.9, Anion Gap 9, BUN 21 H, Creatinine 0.55 L, Estim Creat Clear Calc 154.53, Est GFR (MDRD) Non-Af 123, BUN/Creatinine Ratio 39.0 H, Glucose 236 H, Calcium 8.6, TSH 2.210 Micro: Microbiology 07/17/25 17:00 Blood Culture (Wb) - Anticubital Right Blood Culture - Preliminary 07/17/25 19:06 Mucosa - Nasopharyngeal Respiratory Panel (PCR) - Final 07/17/25 21:00 Nasal Secretion MRSA (PCR) - Final Meth. resistant Staph. aureus 07/17/25 19:06 Mucosa - Nose Coronavirus COVID-19 PCR - Final 07/17/25 14:45 Urine, Clean Catch Legionella Antigen - Final 07/17/25 14:45 Urine, Clean Catch Streptococcus pneumoniae Antigen (M - Final 07/17/25 13:10 Mucosa - Nose SARS-CoV-2, Influenza & RSV (PCR) - Final ABG Data ABG results: ABG 07/17/25 15:11 Specimen Type KAREL Sample Site Not entered VBG pH 7.44 H VBG pO2 34 VBG HCO3 27 H VBG Total CO2 28 VBG O2 Sat (Calc) 68 VBG Base Excess 3 POC Mix VBG pCO2 Pt Tmp 39.4 L O2 Delivery Device Not entered Radiography Diagnostic Testing: Radiology Impression Chest X-Ray 07/17/25 13:07 IMPRESSION: Right lung consolidations, consistent with pneumonia. Posttreatment follow-up imaging is recommended until resolved. Reading Location: [facility] Chest CTA 07/17/25 15:24 IMPRESSION: 1. No pulmonary embolism identified. 2. Extensive airspace disease in the RIGHT middle greater than lower lobes including lobar consolidation/collapse of the RIGHT middle lobe, associated with complete opacification of the associated bronchial tree with debris. Findings suggest relatively large volume aspiration and associated pneumonia/pneumonitis. Note tiny foci of aeration in the consolidated RIGHT middle lobe may reflect necrotizing component/early pulmonary abscess formation. Recommend follow-up CT chest with IV contrast in 2-3 months to document resolution and no underlying central obstructing mass as an alternative etiology for these findings. 3. Mediastinal lymphadenopathy, nonspecific and potentially reactive to the above in the absence of known malignancy. Correlate with medical history and recommend attention on above follow-up. 4. Additional description as above. Reading Location: [id number] Patient's Goals Of Care - F/U Goals Reviewed Goals of care reviewed with patient: NA-No significant change in clinical Status /major procedure scheduled Physical Exam Const alert, oriented x3, no apparent distress and average body habitus Constitutional Narrative: Middle-age male, mildly fatigued and anxious appearing, otherwise sitting back comfortably in bed, conversing normally, in no acute distress. General Appearance: cooperative and comfortable HEENT normocephalic, head/scalp atraumatic, hearing grossly normal bilaterally, nasal mucous membranes and turbinates normal and moist oral mucous membranes Eyes PERRL, EOMs intact bilaterally and conjunctivae normal Neck full ROM Chest inspection of chest normal Resp normal respiratory effort and no use of accessory muscles Resp Narrative: Breathing comfortably on room air at rest. Significantly diminished breath sounds in right lung throughout, but no wheezing or crackles noted. Cardio regular rate, regular rhythm, no murmurs and peripheral pulses 2+ throughout GI normal to inspection, nondistended, normoactive bowel sounds, soft to palpation, non-tender and non-distended Back/Spine normal ROM Extremity normal to inspection, full ROM and no pedal edema Skin no rashes or lesions noted Psych mental status grossly normal Mood & Affect: anxious Assessment & Plan Assessment/Plan (1) Pneumonia: (2) Sepsis: (3) Opioid use disorder: PLAN: Plan Patient is a 49-year-old male who presented to [facility] ED on 07/17/2025 with right-sided chest pain. 1. Acute hypoxia and sepsis without shock secondary to suspected aspiration pneumonia ? ID following. Not on home oxygen, was requiring 4 L at rest on admit to maintain appropriate saturations. Met sepsis criteria on admit with elevated lactic acid, leukocytosis, and hypotension to the 90s over 50s that improved with IV fluid resuscitation. CTA chest on admit with extensive airspace disease in the right middle to lower lobes with consolidation/collapse of the right middle lobe suggestive of relatively large volume aspiration and associated pneumonia/pneumonitis; right middle lobe may reflect necrotizing component/early pulmonary abscess formation. Mediastinal lymphadenopathy suspected to be reactive in setting of infection also noted. MRSA probe positive, urine antigens negative. Sputum culture pending. Per ID, okay to continue vancomycin and Zosyn for now; pending further culture data, plan on discharge will be for Bactrim DS 1 tab twice daily and Augmentin 875 mg twice daily for 10 days. Patient will need follow-up CT chest in 2 to 3 months resolution and no underlying central obstructing mass. 2. New onset diabetes mellitus ? A1c 14.9% on admit. Glucose over 700. However, no anion gap acidosis noted on admit so seems more consistent with new onset type 2 diabetes mellitus. Treating with Danis 10 units daily and sliding scale insulin with meals for now, adjust as needed. Will need to determine best regimen for patient on discharge and ensure he has appropriate outpatient follow-up. 3. Opiate abuse ? Reports daily heroin use. Snorts, no IV drug use. Last use was on day prior to admission. Requested no Subutex for withdrawal symptoms given concern for inducing precipitated withdrawal. Treating with other as needed medications per opiate withdrawal order set. Not interested in meeting with case management for substance abuse resources at this time. Discussed cessation on discharge. 4. Pseudohyponatremia ? Sodium 123 on admit, corrected sodium 133 in setting of hyperglycemia. Sodium level improved to the low 130s with improvement in blood sugars. DVT prophylaxis: Lovenox CODE STATUS: Full code, verified Expected disposition: Home, 1 to 2 days Total clinical time spent by myself addressing the patient's medical issues, reviewing all the data, and collaborating with patient's care team: 41 minutes. Charges/Coding Visit Charges Inpatient E&M: 17453 Subs Hosp L2
--- NOTE | 2025-07-18 12:52 | CON.PCM.ID_ITS ---
Assessment & Plan Assessment/Plan (1) Pneumonia: (2) Opioid use disorder: (3) Diabetes mellitus: (4) Sepsis: PLAN: Sepsis due to pneumonia with fentanyl abuse - concern for possible aspiration. Denies IVDU. HIV neg here. Spoke with nurse and requested cup for sputum cx. Cont vanc/zosyn. MRSA pcr (+), urine antigens neg. Pending further cx data, plan for discharge will be bactrim DS 1 tab bid and augmentin 875mg bid for 10 days. Will follow, thank you HPI Consult Data Date of Consult: 07/18/25 HPI Narrative Reason for Consultation: pneumonia HPI Narrative: JAMIE VILLANUEVA, is a 49 M with daily fentanyl use (snorts, denies IVDU), presented with 3-4 days progressive cough with pink/yellow sputum and R sided chest pain worse with cough or deep breath. Some chills, no fever. No n/v/d. Came to ED, admitted on vanc/zosyn. Feeling a little better, wants to leave the hospital. Full ROS performed and neg except as noted above. [facility] Medical History Encounter for examination required by Department of Transportation (DOT) Home Medications ?Medication ?Instructions ?Recorded ?Last Taken ?Type NK 05/23/23 Unknown History Allergy/AdvReac Type Severity Reaction Status Date / Time No Known Allergies Allergy Verified 07/17/25 13:06 Social History (Updated 05/23/23 @ 13:20 by Magalis Aguilar) Smoking Status: Current every day smoker tobacco type: cigarettes Physical Exam Const alert, oriented x3 and no apparent distress General Appearance: cooperative HEENT normocephalic and head/scalp atraumatic Eyes PERRL and EOMs intact bilaterally Neck supple and No nodes Resp Auscultation: rhonchi and diminished lung sounds Cardio regular rate, regular rhythm and no murmurs GI soft to palpation, non-tender and non-distended Extremity General Extremity: Negative for edema Skin no rashes or lesions noted Neuro CN's II-XII intact bilaterally Lab / Micro Data Attestation: I reviewed the patient's lab results. 07/18/25 05:18 07/18/25 05:18 Labs: Laboratory Results - last 24 hr 07/17/25 13:22: WBC 21.9 H, RBC 5.13, Hgb 14.4, Hct 42.3, MCV 82.5, MCH 28.1, MCHC 34.0, RDW Std Deviation 36.6, RDW Coeff of Shailesh 12.1, Plt Count 417, MPV 9.0, Immature Gran % (Auto) 1.600 H, Neut % (Auto) 77.9 H, Lymph % (Auto) 6.7 L, Stoddard % (Auto) 13.7 H, Eos % (Auto) 0.1, Baso % (Auto) 0.0, Absolute Neuts (auto) 17.0 H, Absolute Lymphs (auto) 1.46, Nucleated RBC % 0, Differential Comment COMMENT, Sodium 123 L, Potassium 5.7 H, Chloride 83 L, Carbon Dioxide 28.1, Anion Gap 12, BUN 32 H, Creatinine 0.94, Estim Creat Clear Calc 85.70, Est GFR (MDRD) Non-Af 100, BUN/Creatinine Ratio 34.4 H, Glucose 743 H*, Calcium 9.9 07/17/25 14:45: D-Dimer Quant (PE/DVT) 1.47 H*, Hemoglobin A1c 14.9 H, Lactic Acid 2.1 H*, Total Bilirubin 0.67, Direct Bilirubin 0.46 H, AST 28, ALT 26, A lkaline Phosphatase 198 H, Troponin T High Sens < 6, NT pro BNP II 148, Total Protein 7.3, Albumin 3.0 L, Globulin 4.3 H, b-Hydroxybutyric mmol/L 0.7 H, Urine Color Straw, Urine Clarity Clear, Urine pH 6.0, Ur Specific [place] 1.010, Urine Protein Negative, Urine Glucose (UA) 1000 H, Urine Ketones 5 H, Urine Occult Blood Negative, Urine Nitrite Negative, Urine Bilirubin Negative, Urine Urobilinogen Normal, Ur Leukocyte Esterase Negative, Urine RBC 0 SEEN, Urine WBC 0 SEEN, Ur Squamous Epith Cells 0-5 SEEN, Urine Bacteria 0 SEEN, Urine Mucus 0 SEEN, Urine Opiates Screen NEGATIVE, U Buprenorphine Qual NEGATIVE, Ur Oxycodone Screen NEGATIVE, Urine Methadone Screen NEGATIVE, Urine Fentanyl Screen PRESUMPTIVE POSITIVE, Ur Barbiturates Screen NEGATIVE, Ur Phencyclidine Scrn NEGATIVE, Ur Amphetamines Screen NEGATIVE, U Benzodiazepines Scrn NEGATIVE, Urine Cocaine Screen NEGATIVE, U Cannabinoids Screen NEGATIVE 07/17/25 14:56: POC Glucose > 500 H* 07/17/25 15:57: POC Glucose > 500 H* 07/17/25 16:56: POC Glucose 450 H 07/17/25 17:47: POC Glucose 413 H 07/17/25 18:44: Sodium 128 L, Potassium 4.2, Chloride 90 L, Carbon Dioxide 24.7, Anion Gap 14, BUN 27 H, Creatinine 0.69 L, Estim Creat Clear Calc 117.93, Est GFR (MDRD) Non-Af 115, BUN/Creatinine Ratio 39.6 H, Glucose 382 H, Lactic Acid 2.5 H*, Calcium 9.0, HIV 1&2 Antibody Nonreactive 07/17/25 18:54: POC Glucose 386 H 07/17/25 22:00: Sodium 128 L, Potassium 4.3, Chloride 92 L, Carbon Dioxide 28.1, Anion Gap 8, BUN 26 H, Creatinine 0.66 L, Estim Creat Clear Calc 123.30, Est GFR (MDRD) Non-Af 117, BUN/Creatinine Ratio 39.7 H, Glucose 370 H, Calcium 8.7 07/17/25 22:50: POC Glucose 325 H 07/18/25 01:55: POC Glucose 254 H 07/18/25 01:59: Sodium 128 L, Potassium 4.4, Chloride 96 L, Carbon Dioxide 22.0, Anion Gap 11, BUN 23 H, Creatinine 0.66 L, Estim Creat Clear Calc 123.30, Est GFR (MDRD) Non-Af 117, BUN/Creatinine Ratio 35.4 H, Glucose 273 H, Calcium 8.1 07/18/25 05:15: POC Glucose 222 H 07/18/25 05:18: WBC 22.0 H, RBC 4.70, Hgb 13.0, Hct 38.3 L, MCV 81.5, MCH 27.7, MCHC 33.9, RDW Std Deviation 36.5, RDW Coeff of Shailesh 12.2, Plt Count 403, MPV 9.1, Immature Gran % (Auto) 1.900 H, Neut % (Auto) 73.8 H, Lymph % (Auto) 10.6 L , Stoddard % (Auto) 13.3 H, Eos % (Auto) 0.3, Baso % (Auto) 0.1, Absolute Neuts (auto) 16.2 H, Absolute Lymphs (auto) 2.32, Nucleated RBC % 0.1, Sodium 131 L, Potassium 4.0, Chloride 95 L, Carbon Dioxide 25.9, Anion Gap 9, BUN 21 H, C reatinine 0.55 L, Estim Creat Clear Calc 154.53, Est GFR (MDRD) Non-Af 123, B UN/Creatinine Ratio 39.0 H, Glucose 236 H, Calcium 8.6, TSH 2.210 07/18/25 09:01: POC Glucose 226 H 07/18/25 11:26: POC Glucose 258 H Micro: Microbiology 07/17/25 17:00 Blood Culture (Wb) - Anticubital Right Blood Culture - Preliminary 07/17/25 19:06 Mucosa - Nasopharyngeal Respiratory Panel (PCR) - Final 07/17/25 21:00 Nasal Secretion MRSA (PCR) - Final Meth. resistant Staph. aureus 07/17/25 19:06 Mucosa - Nose Coronavirus COVID-19 PCR - Final 07/17/25 14:45 Urine, Clean Catch Legionella Antigen - Final 07/17/25 14:45 Urine, Clean Catch Streptococcus pneumoniae Antigen (M - Final 07/17/25 13:10 Mucosa - Nose SARS-CoV-2, Influenza & RSV (PCR) - Final ABG Data ABG results: ABG 07/17/25 15:11 Specimen Type KAREL Sample Site Not entered VBG pH 7.44 H VBG pO2 34 VBG HCO3 27 H VBG Total CO2 28 VBG O2 Sat (Calc) 68 VBG Base Excess 3 POC Mix VBG pCO2 Pt Tmp 39.4 L O2 Delivery Device Not entered Imaging Radiology Impression Chest X-Ray 07/17/25 13:07 IMPRESSION: Right lung consolidations, consistent with pneumonia. Posttreatment follow-up imaging is recommended until resolved. Reading Location: [facility] Chest CTA 07/17/25 15:24 IMPRESSION: 1. No pulmonary embolism identified. 2. Extensive airspace disease in the RIGHT middle greater than lower lobes including lobar consolidation/collapse of the RIGHT middle lobe, associated with complete opacification of the associated bronchial tree with debris. Findings suggest relatively large volume aspiration and associated pneumonia/pneumonitis. Note tiny foci of aeration in the consolidated RIGHT middle lobe may reflect necrotizing component/early pulmonary abscess formation. Recommend follow-up CT chest with IV contrast in 2-3 months to document resolution and no underlying central obstructing mass as an alternative etiology for these findings. 3. Mediastinal lymphadenopathy, nonspecific and potentially reactive to the above in the absence of known malignancy. Correlate with medical history and recommend attention on above follow-up. 4. Additional description as above. Reading Location: [id number]
--- NOTE | 2025-07-18 13:54 | CASEMGMT ---
Social Work SW spoke with the patient and provided resources such as [place] Lewis, street card, prescription assistance list and F financial assistance information. ANA Martin
[2025-07-18] MEDS: 0.9% Normal Saline (250mL Bag) 250 ML 15 ML IV (16:37)
--- NOTE | 2025-07-18 18:25 | NURSING ---
Patient insists on leaving against medical advice after a lengthy explanation of the risks from this RN. Patient did sign one copy of the AMA form but refused his copy. Dr Sheriff notified and will send antibiotics to the [facility].
--- NOTE | 2025-07-19 07:18 | DCINST_ITS ---
Discharge Instructions DC O2, CPAP, BIPAP needs Home O2 Discharge instructions: No Dressing / Incision Discharge Activity: No Restrictions Follow Up Care Test Results: Test results from this visit will be discussed in further detail at your follow- up appointment, if applicable. Discharge Plan Admission Admit Date/Time: 07/17/25 17:28 Primary Reason for Your Visit: Shortness of breath and chest pain Attending Provider: Kenneth Sheriff Primary Care Provider: Care Physician,No Primary Consulting Providers: Jana Randle; Max Romero Discharge Orders/Prescriptions Prescriptions: New sulfamethoxazole-trimethoprim [Bactrim DS] 800-160 mg tablet 1 tab PO BID 10 Days Qty: 20 0RF amoxicillin-pot clavulanate 875-125 mg tablet 1 tab PO BID 10 Days Qty: 20 0RF Referrals / Follow Up: Care Physician,No Primary [Primary Care Provider, Medical] Disposition Disposition (needs filled in before D/C Order can be placed): Against Medical Advice
--- NOTE | 2025-07-19 07:20 | DS.PCM_ITS ---
Providers Date of Admission: 07/17/25 Date of Discharge: 07/18/25 Primary Care Physician: Jordyn Primary Care Phys Consultations 07/17/25 18:20 Consult: Infectious Disease Routine Consulting Provider: Max Romero Reason for Consult: R sided significant pneumonia EMERGENT Consult: No MD Notified: Yes Date Notified: 07/18/25 Time Notified: 06:00 Method of Notification: Text Reason For Visit: RIGHT-SIDED PNEUMONIA AND NEW ONSET DIABETES Diagnosis Discharge Diagnosis (1) Pneumonia: Status: Acute Code(s): J18.9 - Pneumonia, unspecified organism (2) Sepsis: Status: Acute Code(s): A41.9 - Sepsis, unspecified organism (3) Opioid use disorder: Status: Acute Code(s): F11.90 - Opioid use, unspecified, uncomplicated Medications at Discharge Home Medications amoxicillin 875 mg-potassium clavulanate 125 mg tablet 1 tab PO BID 10 days #20 tabs 07/19/25 sulfamethoxazole 800 mg-trimethoprim 160 mg tablet (Bactrim DS) 1 tab PO BID 10 days #20 tabs 07/19/25 Hospital Course Operations None Procedures EKG and - (Chest x-ray, CTA chest) Summary of Care Provided Minutes Spent on Discharge: 36 Hospital Course: Patient is a 49-year-old male who presented to [facility] ED on 07/17/2025 with right-sided chest pain. Short hospital course as noted below. Patient unfortunately opted to leave AGAINST MEDICAL ADVICE on 07/18. . Acute hypoxia and sepsis without shock secondary to suspected aspiration pneumonia ? ID followed. Not on home oxygen, was requiring 4 L at rest on admit to maintain appropriate saturations. Met sepsis criteria on admit with elevated lactic acid, leukocytosis, and hypotension to the 90s over 50s that improved with IV fluid resuscitation. CTA chest on admit with extensive airspace disease in the right middle to lower lobes with consolidation/collapse of the right middle lobe suggestive of relatively large volume aspiration and associated pneumonia/pneumonitis; right middle lobe may reflect necrotizing component/early pulmonary abscess formation. Mediastinal lymphadenopathy suspected to be reactive in setting of infection also noted. MRSA probe positive, urine antigens negative. Sputum culture pending. Per ID, treated with vancomycin and Zosyn while inpatient. Pending further culture data, plan was for discharge on Bactrim DS 1 tab twice daily and Augmentin 875 mg twice daily for 10 days. As patient chose to leave AMA on 07/18, will send Bactrim and Augmentin for 10-day courses each to the pharmacy for patient to take. Patient will need follow-up CT chest in 2 to 3 months resolution and no underlying central obstructing mass. 2. New onset diabetes mellitus ? A1c 14.9% on admit. Glucose over 700. However, no anion gap acidosis noted on admit so seems more consistent with new onset type 2 diabetes mellitus. Treated with Lantus 10 units daily and sliding scale insulin with meals while inpatient. Opted to leave AMA on 07/18 as above. Highly important that patient establishes with a PCP to be an appropriate treatment for his diabetes. 3. Opiate abuse ? Reported daily heroin use. Snorts, no IV drug use. Last use was on day prior to admission. Requested no Subutex for withdrawal symptoms given concern for inducing precipitated withdrawal. Treating with other as needed medications per opiate withdrawal order set. Not interested in meeting with case management for substance abuse resources at this time. Discussed cessation on discharge. 4. Pseudohyponatremia ? Sodium 123 on admit, corrected sodium 133 in setting of hyperglycemia. Sodium level improved to the low 130s with improvement in blood sugars. Total clinical time spent by myself addressing the patient's medical issues, reviewing all the data, and collaborating with patient's care team: 36 minutes. Physical Exam Const alert, oriented x3, no apparent distress and average body habitus Constitutional Narrative: Middle-age male, mildly fatigued and anxious appearing, otherwise sitting back comfortably in bed, conversing normally, in no acute distress. General Appearance: cooperative and comfortable HEENT normocephalic, head/scalp atraumatic, hearing grossly normal bilaterally, nasal mucous membranes and turbinates normal and moist oral mucous membranes Eyes PERRL, EOMs intact bilaterally and conjunctivae normal Neck full ROM Chest inspection of chest normal Resp normal respiratory effort and no use of accessory muscles Resp Narrative: Breathing comfortably on room air at rest. Significantly diminished breath sounds in right lung throughout, but no wheezing or crackles noted. Cardio regular rate, regular rhythm, no murmurs and peripheral pulses 2+ throughout GI normal to inspection, nondistended, normoactive bowel sounds, soft to palpation, non-tender and non-distended Back/Spine normal ROM Extremity normal to inspection, full ROM and no pedal edema Skin no rashes or lesions noted Psych mental status grossly normal Mood & Affect: anxious Weight / BMI Weight Weight: 65.8 kg Body Mass Index (BMI) 22.7 ABG / Lab / Microbiology Data 07/18/25 05:18 07/18/25 05:18 Laboratory: Laboratory Results - last 24 hr 07/18/25 09:01: POC Glucose 226 H 07/18/25 11:26: POC Glucose 258 H 07/18/25 16:35: POC Glucose 245 H Microbiology: Microbiology 07/18/25 14:30 Sputum, Expectorated/Coughed Gram Stain - Final 07/17/25 17:00 Blood Culture (Wb) - Anticubital Right Blood Culture - Preliminary 07/17/25 19:06 Mucosa - Nasopharyngeal Respiratory Panel (PCR) - Final 07/17/25 21:00 Nasal Secretion MRSA (PCR) - Final Meth. resistant Staph. aureus 07/17/25 19:06 Mucosa - Nose Coronavirus COVID-19 PCR - Final 07/17/25 14:45 Urine, Clean Catch Legionella Antigen - Final 07/17/25 14:45 Urine, Clean Catch Streptococcus pneumoniae Antigen (M - Final 07/17/25 13:10 Mucosa - Nose SARS-CoV-2, Influenza & RSV (PCR) - Final D/C Instructions DC O2, CPAP, BIPAP Needs Home O2 Discharge instructions: No Patient's Goals Of Care - F/U Goals Reviewed Goals of care reviewed with patient: NA-No significant change in clinical Status /major procedure scheduled Meaningful Use Info Meaningful Use Meaningful Use Diagnoses (Choose all that apply): None applicable Discharge Plan Admission Admit Date/Time: 07/17/25 17:28 Primary Reason for Your Visit: Shortness of breath and chest pain Attending Provider: Kenneth Sheriff Primary Care Provider: Care Physician,No Primary Consulting Providers: Jana Randle; Max Romero Discharge Orders/Prescriptions Prescriptions: New sulfamethoxazole-trimethoprim [Bactrim DS] 800-160 mg tablet 1 tab PO BID 10 Days Qty: 20 0RF amoxicillin-pot clavulanate 875-125 mg tablet 1 tab PO BID 10 Days Qty: 20 0RF Referrals / Follow Up: Care Physician,No Primary [Primary Care Provider, Medical] Disposition Disposition (needs filled in before D/C Order can be placed): Against Medical Advice Charges/Coding Visit Charges Inpatient E&M: 44548 Disch Hosp >30min
== END 2025-07-18 18:10 | disposition left against medical advice (07) | DRG 871 ==
LOC: ED 15:44 → PCU 18:22
PROVIDERS: Admitting Provider Internal Medicine; Emergency Provider Surgery; Visit Provider Hospitalist
DX: A41.02 Sepsis due to Methicillin resistant Staphylococcus aureus (principal); J85.1 Abscess of lung with pneumonia; J15.212 Pneumonia due to Methicillin resistant Staphylococcus aureus; J69.0 Pneumonitis due to inhalation of food and vomit; E11.65 Type 2 diabetes mellitus with hyperglycemia; F11.10 Opioid abuse, uncomplicated; F17.210 Nicotine dependence, cigarettes, uncomplicated; E87.5 Hyperkalemia; R09.02 Hypoxemia; Z53.29 Procedure and treatment not carried out because of patient's decision for other reasons
CPT/HCPCS: 36415; 71046; 71275; 80048; 80076; 80307; 81001; 82010; 82803; 82962; 83036; 83605; 83880; 84443; 84484; 85025; 85379; 86703; 87040; 87070; 87077; 87186; 87205; 87449; 87631; 87633; 87635; 87641; 93005; 94640; 94667; 94668; 94760; 99285; 99406; Q9967; A4216; J0696; J2405